=== PATIENT | female | born 1990 | race Caucasian/White ===

== ENCOUNTER 2025-03-30 23:01 | Inpatient (IN) | payer BC ==
[~2025-03-30] VITALS: Ht 172.7 cm; Wt 91.6 kg
[2025-03-30] MEDS ORDERED: OXYTOCIN/0.9 % SODIUM CHLORIDE 30 UNITS/500 ML BAG IV SCH (23:45)
[2025-03-30] MEDS ORDERED: LACTATED RINGER'S 1,000 ML IV SCH (23:45)
[2025-03-30] MEDS ORDERED: CALCIUM CARBONATE 500 MG CHEW PO PRN (23:45)
[2025-03-30] MEDS ORDERED: MAGNESIUM HYDROXIDE/AL HYDROX 30 ML CUP PO PRN (23:45)
[2025-03-30] MEDS ORDERED: LACTATED RINGER'S 1,000 ML IV PRN (23:45)
[2025-03-30] MEDS ORDERED: LIDOCAINE HCL 1% 30 ML SDV INJ PRN (23:45)
[2025-03-30] MEDS ORDERED: TERBUTALINE SULFATE 1 MG/ML AMP SUB-Q PRN (23:45)
[2025-03-31 00:08] LABS: BASOPHILS 0.4 % (0.1-1.2); EOSINOPHILS 0.7 % (0.7-5.8); LYMPHOCYTES 17.6 % (19.3-51.7); MCH 26.9 PG (25.6-32.2); MCHC 32.9 g/dL (32.2-35.5); MCV 82.0 fL (79.4-94.8); MONOCYTES 8.1 % (4.7-12.5); NEUTROPHILS 72.3 % (34.0-71.1); RBC 4.27 M/uL (3.93-5.22)
[2025-03-31 00:29] LABS: AMPHETAMINES, URINE NEGATIVE (NEGATIVE); BARBITURATES, URINE NEGATIVE (NEGATIVE); BENZODIAZEPINE, URINE NEGATIVE (NEGATIVE); CANNABINOID, URINE NEGATIVE (NEGATIVE); COCAINE, URINE NEGATIVE (NEGATIVE); ECSTASY, URINE NEGATIVE (NEGATIVE); FENTANYL, URINE NEGATIVE (NEGATIVE); METHADONE, URINE NEGATIVE (NEGATIVE); OPIATES, URINE NEGATIVE (NEGATIVE); OXYCODONE, URINE NEGATIVE (NEGATIVE); PHENCYCLIDINE, URINE NEGATIVE (NEGATIVE)
[2025-03-31 00:38] LABS: ABO O; ANTIBODY SCREEN NEGATIVE; RH POSITIVE
[2025-03-31] MEDS ORDERED: ePHEDrine sulfate 5 MG/ML SYRINGE IV PRN (01:00)
[2025-03-31] MEDS ORDERED: LACTATED RINGER'S 2,000 ML IV ONE (01:00)
[2025-03-31] MEDS ORDERED: LACTATED RINGER'S 500 ML IV PRN (01:00)
[2025-03-31] MEDS ORDERED: ROPIVACAINE 0.2% 200 ML BAG EPIDURAL SCH (01:00)
[2025-03-31 02:01] VITALS: BP 113/81
[2025-03-31] MEDS ORDERED: ePHEDrine KIT FOR FBC IV ONE (03:27)
--- NOTE | 2025-03-31 08:15 | PR ---
[facility] [address], [place] [address] Signed Progress Notes IP Datetime Report Generated by CPN: 03/31/2025 08:14 PROGRESS NOTES: [id number] Impression: Normal Progression of Labor; Reassuring Heart Rate Procedures: Artificial ROM; Intrauterine Pressure Catheter; Sterile Vag Exam Plan: Continue Present Management; Anticipate Vaginal Delivery Informed Consent Obtain: Vaginal Delivery VITAL SIGNS: [id number] Vital Signs: Reviewed; Within Normal Limits EXAM: [id number] Dilatation: 8.0 Effacement: 90 Effacement: 95 Effacement: 90 Effacement: 80 Station: -2 Station: -2 Station: -2 Station: -2 Contractions: Irregular; difficult to trace. IUPC placed MEMBRANES: [id number] Comments: Pt seen and examined. Doing well. Comfortable w/ contractions w/ epidural. Desires AROM. Cervix well applied and verbal consent obtained. AROM easily for moderate amount of clear fluid. Recommended IUPC given difficulty tracing contractions and comfort w/ epidural and pt agrees. IUPC placed w/out difficulty. Anticipate soon. FETUS A: [id number] FHR Baseline: 130 Variability: Moderate 6-25bpm Accelerations: None Decelerations: None FHR Category: Category I Presentation: Vertex Comments on Fetus A: No evidence of metabolic acidosis FETUS B: [id number] Signing Physician: Jennifer Cleaning DO *Electronically Signed* 03/31/25 0814 JENNIFER CLEANING (CHARLEY) DO PATIENT NAME: ADEEL HOUGH PROGRESS NOTE DATE OF : 88 PHYSICIAN: JENNIFER CLEANING (JD) DO RPT #: [id number] REPORT IS CONFIDENTIAL AND NOT TO BE RELEASED WITHOUT AUTHORIZATION
[2025-03-31] MEDS ORDERED: OXYTOCIN/0.9 % SODIUM CHLORIDE 500 ML IV SCH ×2 (09:45→10:45)
[2025-03-31] MEDS ORDERED: ACETAMINOPHEN 325 MG TAB PO PRN (10:45)
[2025-03-31] MEDS ORDERED: CALCIUM CARBONATE 500 MG CHEW PO PRN (10:45)
[2025-03-31] MEDS ORDERED: MAGNESIUM HYDROXIDE 30 ML UDC PO PRN (10:45)
[2025-03-31] MEDS ORDERED: HYDROCODONE/ACETA 5/325 TAB PO PRN (10:45)
[2025-03-31] MEDS ORDERED: WITCH HAZEL/GLYCERIN 1 EA PAD TOP PRN (10:45)
[2025-03-31] MEDS ORDERED: BENZOCAINE 60 ML AEROSOL TOP PRN (10:45)
[2025-03-31] MEDS ORDERED: MAGNESIUM HYDROXIDE/AL HYDROX 30 ML CUP PO PRN (10:45)
[2025-03-31] MEDS ORDERED: HYDROCORTISONE ACETATE 25 MG SUPP PR PRN (10:45)
[2025-03-31] MEDS ORDERED: IBUPROFEN 600 MG TAB PO PRN (10:45)
[2025-03-31] MEDS ORDERED: OXYCODONE/APAP 5/325 TAB PO PRN (10:45)
[2025-03-31] MEDS ORDERED: SENNOSIDES/DOCUSATE 1 EA TAB PO SCH (21:00)
[2025-04-01 05:39] LABS: MCH 27.0 PG (25.6-32.2); MCHC 32.4 g/dL (32.2-35.5); MCV 83.4 fL (79.4-94.8); RBC 4.03 M/uL (3.93-5.22)
[2025-04-01 06:12] LABS: SMEAR REVIEW BLOOD SEE COMMENTS
--- NOTE | 2025-04-01 16:39 | PR ---
[facility] [address] [facility] [place], [place] [address] Signed PP Progress Notes Datetime Report Generated by CPN: 04/01/2025 16:39 SUBJECTIVE: [id number] Pain: Within Normal Limits Bowel Movement: No Vital Signs: [id number] Vital Signs: Reviewed; Within Normal Limits Cardiovascular: Normal Respiratory: Normal Abdomen/Uterus: Normal Lochia: Normal Vulva/Perineum: Not Done Breasts: Not Done CVA Tenderness: Normal Extremities: Normal Incision: Not Applicable Progress: Normal Exam Comments: Fundus firm U-2 nontender IMPRESSION/PLAN/PROCEDURES: [id number] Impression: Normal Progression Plan: Continue Present Management Progress Notes: Pt seen and examined. Doing well. Ambulating, voiding and tolerating full diet. Pain and lochia minimal. . No concerns. Anticipate d/c home tomorrow Signing Physician: Robin Hough CNM Copies: ~ *Electronically Signed* 04/01/25 3212 ROBIN HOUGH CNM PATIENT NAME: ADEEL HOUGH PROGRESS NOTE DATE OF : 88 PHYSICIAN: ROBIN HOUGH CNM RPT #: [id number] REPORT IS CONFIDENTIAL AND NOT TO BE RELEASED WITHOUT AUTHORIZATION
--- NOTE | 2025-04-02 08:36 | PR ---
[facility] [address] [facility] [place], [place] [address] Signed PP Progress Notes Datetime Report Generated by CPN: 04/02/2025 08:36 Pain: Within Normal Limits Nausea/Vomiting: Denies Flatus: Yes Bowel Movement: Yes Vital Signs: Reviewed; Within Normal Limits Cardiovascular: Normal Respiratory: Normal Abdomen/Uterus: Normal Lochia: Normal Vulva/Perineum: Not Done Breasts: Not Done CVA Tenderness: Normal Extremities: Normal Incision: Not Applicable Progress: Normal Exam Comments: Fundus firm U-2 nontender Impression: Normal Progression Plan: Discharge Progress Notes: Pt seen and examined. She and baby are doing very well. Ambulating, voiding, and tolerating full diet. Pain and lochia minimal. well. No fever/chills. No concerns. Desires d/c home. Reviewed d/c instructions and medications in detail. Uncertain for pp contraception. F/U 6 wk pp visit. Signing Physician: Jennifer Cleaning DO Copies: ~ *Electronically Signed* 04/02/25 0836 JENNIFER CLEANING (CHARLEY) DO PATIENT NAME: ADEEL HOUGH PROGRESS NOTE DATE OF : 88 PHYSICIAN: JENNIFER CLEANING) DO RPT #: [id number] REPORT IS CONFIDENTIAL AND NOT TO BE RELEASED WITHOUT AUTHORIZATION
== END 2025-04-02 11:35 | disposition home or self-care (01) | DRG 807 ==
LOC: FBCO 23:01 → FBC 23:45
PROVIDERS: ADMIT Obstetrics & Gynecology; ATTEND Obstetrics & Gynecology
PROC: 10907ZC Drainage of Amniotic Fluid, Therapeutic from Products of Conception, Via Natural or Artificial Opening (ICD-10-PCS; principal; 2025-03-31)
PROC: 10H07YZ Insertion of Other Device into Products of Conception, Via Natural or Artificial Opening (ICD-10-PCS; principal; 2025-03-31)
PROC: 0UQMXZZ Repair Vulva, External Approach (ICD-10-PCS; principal; 2025-03-31)
PROC: 10E0XZZ Delivery of Products of Conception, External Approach (ICD-10-PCS; principal; 2025-03-31)
DX: O99.02 Anemia complicating childbirth (principal); Z37.0 Single live birth; O71.82 Other specified trauma to perineum and vulva; Z3A.37 37 weeks gestation of pregnancy; O35.8XX0 Maternal care for other (suspected) fetal abnormality and damage, not applicable or unspecified; D64.9 Anemia, unspecified; Z79.899 Other long term (current) drug therapy
CPT/HCPCS: 01960; 36415; 80307; 85025; 85027; 85060; 86850; 86900; 86901; A9270; J2405; J7121